=== PATIENT | female | born 1975 | race Caucasian/White ===

== ENCOUNTER 2016-05-24 16:02 | Emergency (ER) | payer OTHER ==
[~2016-05-24] VITALS: Ht 157.5 cm; Wt 56.7 kg
[2016-05-24 16:09] VITALS: TEMP 36.6; Ht 157.5 cm; Wt 56.7 kg
[2016-05-24 16:38] LABS: PREG INTERNAL NEGATIVE QC NEG CLEAR BACKGROUND; PREG INTERNAL POSITIVE QC POS CONTROL LINE
[2016-05-24 16:39] LABS: URINE APPEARANCE CLOUDY (CLEAR); URINE BILIRUBIN NEG (NEG); URINE COLOR YELLOW; URINE NITRITE POS (NEG); URINE PH 6.5 (4.5-7.5); URINE SPECIFIC GRAVITY 1.008 (1.000-1.030); UROBILINOGEN NEG (NEG); ZZUR CULT IF INDIC CLEAN CATCH YES
[2016-05-24 16:47] LABS: MANUAL MICROSCOPIC REQUIRED? NO; REVIEW REQ? YES
[2016-05-24] MEDS ORDERED: SODIUM CHLORIDE 0.9% 1000ML 1,000 ML IV STA (17:14)
[2016-05-24] MEDS ORDERED: CEFTRIAXONE SOD INJ 1 GM ADDVIAL IV STA (17:28)
[2016-05-24] MEDS ORDERED: KETOROLAC TROMETHAMINE 30 MG/ML VIAL IV STA (17:28)
--- NOTE | 2016-05-24 17:28 | EMERGENCY ROOM VISIT NOTE ---
History Report prepared by Melida: Micha Reyes Under the Supervision of: Dr. Madelin Dominguez M.D. First contact with patient: 17:13 Chief Complaint: URINARY SYMPTOMS Stated Complaint: VAG BLEEDING,FREQUENCY URINATING,CONSTANT NEED TO Nursing Triage Summary: urinary frequency, pain, burning. Possible vaginal bleeding. History of Present Illness The patient is a 40 year old female who presents to the Emergency Room with complaints of persistent vaginal bleeding that started approximately 6 days ago. She says it looks like her period, but it is not her period since she had her period 2 weeks ago. The patient says she thinks she had blood clots during her last period. She associates the vaginal bleeding with a constant urge to urinate and burning urination. She says she feels better when sitting down on the toilet seat, and she does not know why. The patient also complains of back pain on both sides. She wears a pad all the time now, and her bleeding is there all the time. She denies any chance of . The patient does note that this year her periods have not been coming on like clockwork as her periods usually do. The patient does have a twin sister with similar issues. The patient has an appointment scheduled with a [facility] PCP in a few days. She denies any fevers. Source of History: patient, family Onset: 6 days ago Position: other (global - vaginal bleeding) Timing: other (persistent) Modifying Factors (Relieving): other (sitting on toilet seat) Associated Symptoms: + back pain, + urinary symptoms (constant urge to urinate; burning urination), No fevers Note: No other associated symptoms. Review of Systems See HPI for pertinent positives & negatives. A total of 10 systems reviewed and were otherwise negative. Past Medical & Surgical Medical Problems: (1) Anemia affecting (2) Bronchitis Family History Cancer Hypertension Social History Smoking Status: Current Every Day Smoker Alcohol Use: none Marital Status: Housing Status: lives with family Occupation Status: unemployed Current/Historical Medications Scheduled Ciprofloxacin Hcl (Cipro), 500 MG PO BID Scheduled PRN Ibuprofen Tab (Advil), 200 MG PO UD PRN for Pain or Fever Allergies Coded Allergies: No Known Allergies (Unverified , 05/24/16) Physical Exam Vital Signs Date Time Temp Pulse Resp B/P Pulse Ox O2 Delivery O2 Flow Rate FiO2 05/24/16 19:41 61 18 121/71 98 05/24/16 17:53 54 18 115/69 97 Room Air 05/24/16 16:09 36.6 61 17 128/82 96 Room Air Physical Exam Vital signs reviewed. General: Well-appearing 40 year old female, in no significant distress. HEENT: No scleral icterus, PERRLA, neck supple. Atraumatic. Cardiovascular: Regular rate and rhythm, no extra sounds. Pulmonary: Clear to auscultation bilaterally, normal work of breathing. Back: Right side CVA tenderness. Atraumatic Abdomen: Soft, nontender, nondistended, positive bowel sounds. Pelvic Exam: Moderate amounts of dark red blood in vaginal vault. No cervical motion tenderness, no masses appreciated. Musculoskeletal: Atraumatic, no peripheral edema. Neurologic: Patient awake alert and oriented x 3, full strength in all 4 extremities. Cranial nerves 2 through 12 grossly intact. Skin: Warm, dry, no rash Medical Decision & Procedures Laboratory Results 05/24/16 17:44 Red Blood Count 4.08, Mean Corpuscular Volume 91.4, Mean Corpuscular Hemoglobin 30.9, Mean Corpuscular Hemoglobin Concent 33.8, Mean Platelet Volume 10.3, Neutrophils (%) (Auto) 73.3, Lymphocytes (%) (Auto) 17.5, Monocytes (%) (Auto) 7.8, Eosinophils (%) (Auto) 0.9, Basophils (%) (Auto) 0.3, Neutrophils # (Auto) 9.10, Lymphocytes # (Auto) 2.18, Monocytes # (Auto) 0.97, Eosinophils # (Auto) 0.11, Basophils # (Auto) 0.04 05/24/16 17:44 Test 05/24/16 16:20 05/24/16 17:44 Urine Color YELLOW Urine Appearance CLOUDY (CLEAR) Urine pH 6.5 (4.5-7.5) Urine Specific Remer 1.008 (1.000-1.030) Urine Protein 1+ (NEG) Urine Glucose (UA) NEG (NEG) Urine Ketones NEG (NEG) Urine Occult Blood 3+ (NEG) Urine Nitrite POS (NEG) Urine Bilirubin NEG (NEG) Urine Urobilinogen NEG (NEG) Urine Leukocyte Esterase LARGE (NEG) Urine WBC (Auto) >30 /hpf (0-5) Urine RBC (Auto) 10-30 /hpf (0-4) Urine Hyaline Casts (Auto) 0 /lpf (0-5) Urine Epithelial Cells (Auto) 10-20 /lpf (0-5) Urine Bacteria (Auto) 4+ (NEG) Urine Yeast (Auto) (NONE PRSENT) Urine Test NEG (NEG) White Blood Count 12.43 K/uL (4.8-10.8) Red Blood Count 4.08 M/uL (4.2-5.4) Hemoglobin 12.6 g/dL (12.0-16.0) Hematocrit 37.3 % (37-47) Mean Corpuscular Volume 91.4 fL (80-100) Mean Corpuscular Hemoglobin 30.9 pg (25-34) Mean Corpuscular Hemoglobin Concent 33.8 g/dl (32-36) Platelet Count 303 K/uL (130-400) Mean Platelet Volume 10.3 fL (7.4-10.4) Neutrophils (%) (Auto) 73.3 % Lymphocytes (%) (Auto) 17.5 % Monocytes (%) (Auto) 7.8 % Eosinophils (%) (Auto) 0.9 % Basophils (%) (Auto) 0.3 % Neutrophils # (Auto) 9.10 K/uL (1.4-6.5) Lymphocytes # (Auto) 2.18 K/uL (1.2-3.4) Monocytes # (Auto) 0.97 K/uL (0.11-0.59) Eosinophils # (Auto) 0.11 K/uL (0-0.5) Basophils # (Auto) 0.04 K/uL (0-0.2) RDW Standard Deviation 43.8 fL (36.4-46.3) RDW Coefficient of Variation 13.0 % (11.5-14.5) Immature Granulocyte % (Auto) 0.2 % Immature Granulocyte # (Auto) 0.03 K/uL (0.00-0.02) Anion Gap 9.0 mmol/L (3-11) Est Creatinine Clear Calc Drug Dose 70.7 ml/min Estimated GFR () 102.3 Estimated GFR (Non- 88.3 BUN/Creatinine Ratio 18.1 (10-20) Calcium Level 8.8 mg/dl (8.5-10.1) Total Bilirubin 0.3 mg/dl (0.2-1) Direct Bilirubin < 0.1 mg/dl (0-0.2) Aspartate Amino Transf (AST/SGOT) 15 U/L (15-37) Alanine Aminotransferase (ALT/SGPT) 22 U/L (12-78) Alkaline Phosphatase 57 U/L (45-117) Total Protein 7.8 gm/dl (6.4-8.2) Albumin 4.2 gm/dl (3.4-5.0) Date/Time Source Procedure Growth Status 05/24/16 16:20 Urine , Clean Catch Urine Culture - Final Escherichia Coli Complete Laboratory results per my review. Medications Administered Medications (Trade) Dose Ordered Sig/Butch Route Start Time Stop Time Status Last Admin Dose Admin Sodium Chloride (Nss 1000ml) 1,000 ml @ 200 mls/hr Q5H STAT IV 05/24/16 17:14 05/24/16 20:21 DC 05/24/16 17:14 200 MLS/HR Ceftriaxone Sodium (Rocephin Inj) 1 gm NOW STAT IV 05/24/16 17:28 05/24/16 17:30 DC 05/24/16 17:50 1 GM Ketorolac Tromethamine (Toradol Inj) 30 mg NOW STAT IV 05/24/16 17:28 05/24/16 17:30 DC 05/24/16 17:49 30 MG ED Course 1714: Past medical records reviewed. The patient was evaluated in room B10. A complete history and physical examination was performed. 1714: Ordered NSS 1000 ml @ 200 mls/hr IV. 1728: Ordered Toradol Inj 30 mg IV, Rocephin Inj 1 gm IV. 1857: I reevaluated the patient and she is resting comfortably. The patient verbally expressed agreement and understanding of the treatment plan. The patient will be discharged. Medical Decision Differential diagnoses include: cystitis, pyelonephritis, ovarian cyst, ectopic , dysfunctional urine bleeding, threatened . This pt was evaluated and appeared to be in no distress. IV access was obtained and lab work was drawn. Pt was hydrated with NSS and medicated with IV toradol and IV rocephin after UA is + for infection. Pt was feeling improved. Pelvic exam was performed and reveals dk blood, mod amount. I suspect the pt is having some dysfunctional uterine bleeding as she states periods have been irregular for 1 year. She was d/c with Rx for Cipro and asked to f/u with PCP in several days as scheduled. She was referred to OBGYN as well. She will return to the ED for worsening of symptoms or any medical concerns. Impression Primary Impression: Pyelonephritis Additional Impression: Dysfunctional uterine bleeding Scribe Attestation The scribe's documentation has been prepared under my direction and personally reviewed by me in its entirety. I confirm that the note above accurately reflects all work, treatment, procedures, and medical decision making performed by me. Departure Information Dispostion Home / Self-Care Prescriptions Ciprofloxacin Hcl (CIPRO) 500 Mg Tab 500 MG PO BID, #14 TAB Prov: Madelin Dominguez M.D. 05/24/16 Referrals No Doctor, Assigned (PCP) Forms HOME CARE DOCUMENTATION FORM, IMPORTANT VISIT INFORMATION Patient Instructions A Signature Page, My [facility] Additional Instructions Diagnosis: Pyelonephritis, dysfunctional uterine bleeding Cipro 500 mg twice daily for 7 days. Drink plenty of clear fluids. Ibuprofen 600 mg every 6 hours as needed for pain with food. Follow-up with your physician as scheduled this week for reevaluation. Call FRAME CATCHER, see below, for an appointment in follow-up. Return to the ER for worsening of symptoms or any medical concerns.
[2016-05-24] MEDS ORDERED: IBUP-103 PO (17:45)
[2016-05-24 17:59] LABS: BASO % 0.3 %; BASO ABS # 0.04 K/uL (0-0.2); COMPLETE YES; EOS % 0.9 %; HEMATOCRIT 37.3 % (37-47); IG% 0.2 %; LYMPH % 17.5 %; LYMPH ABS # 2.18 K/uL (1.2-3.4); MEAN CELL VOLUME 91.4 fL (80-100); MEAN CORPUSCULAR HEMOGLOBIN 30.9 pg (25-34); MEAN CORPUSCULAR HGB CONC 33.8 g/dl (32-36); MEAN PLATELET VOLUME 10.3 fL (7.4-10.4); MONO % 7.8 %; NEUT % 73.3 %; PLATELET COUNT 303 K/uL (130-400); RED BLOOD COUNT 4.08 M/uL (4.2-5.4); WHITE BLOOD COUNT 12.43 K/uL (4.8-10.8)
[2016-05-24 18:11] LABS: ALT/SGPT 22 U/L (12-78); AST/SGOT 15 U/L (15-37); BLOOD UREA NITROGEN 15 mg/dl (7-18); BUN/CREATININE RATIO 18.1 (10-20); CALCIUM 8.8 mg/dl (8.5-10.1); CARBON DIOXIDE 25 mmol/L (21-32); CHLORIDE 108 mmol/L (98-107); CREATININE 0.82 mg/dl (0.60-1.20); GLUCOSE 92 mg/dl (70-99); POTASSIUM 3.9 mmol/L (3.5-5.1); SODIUM 142 mmol/L (136-145)
[2016-05-24 18:14] LABS: ALKALINE PHOSPHATASE 57 U/L (45-117)
[2016-05-24] MEDS ORDERED: CIPR-255 PO (19:27)
[2016-05-24 19:41] VITALS: BP 121/71; PULSE 61; O2SAT 98
--- NOTE | 2016-05-26 13:12 | Pharmacy Progress Note ---
ED Pharmacist Culture FollowUp Date of Service: May 26, 2016. Patient was sent home with a prescription for ciprofloxacin, which should cover the E. coli growing from the patient's urine culture.
== END 2016-05-24 19:41 | disposition home or self-care (01) ==
LOC: C.EDB 16:05
DX: N12 Tubulo-interstitial nephritis, not specified as acute or chronic (principal); N93.8 Other specified abnormal uterine and vaginal bleeding; F17.200 Nicotine dependence, unspecified, uncomplicated

== ENCOUNTER → 2016-09-01 | Outpatient (CLI) | payer OTHER ==
[~2016-09-01] MED LIST: CIPR-255 PO; IBUP-103 PO
[2016-09-01 12:19] LABS: BASO % 0.8 %; BASO ABS # 0.05 K/uL (0-0.2); COMPLETE YES; EOS % 1.8 %; HEMATOCRIT 37.4 % (37-47); LYMPH % 33.2 %; LYMPH ABS # 2.08 K/uL (1.2-3.4); MEAN CORPUSCULAR HEMOGLOBIN 30.2 pg (25-34); MEAN PLATELET VOLUME 10.6 fL (7.4-10.4); MONO % 8.8 %; NEUT % 55.4 %; PLATELET COUNT 339 K/uL (130-400); WHITE BLOOD COUNT 6.27 K/uL (4.8-10.8)
== END | disposition home or self-care (01) ==
LOC: C.LAB1850 10:04
PROVIDERS: ATTEND Obstetrics & Gynecology
DX: N92.0 Excessive and frequent menstruation with regular cycle (principal)

== ENCOUNTER → 2016-09-21 | Day surgery (SDC) | payer OTHER ==
[2016-09-09 10:47] VITALS: BMI 21.0
[~2016-09-21] VITALS: Ht 162.6 cm; Wt 56.4 kg
[~2016-09-21] MED LIST changes: +ATROPINE SULFATE 0.1 MG/ML 5ML SYR IV PRN; -CIPR-255 PO; +DEXAMETHASONE SOD INJ 4 MG/ML VIAL ONE; +EpHEDrine SULFATE INJ 50 MG/ML AMP IV PRN; +FENTANYL CITRATE INJ 50 MCG/1 ML 2 ML VIAL IV PRN; +FENTANYL CITRATE INJ 50 MCG/1 ML 2 ML VIAL ONE; -IBUP-103 PO; +IBUPROFEN 600 MG TAB PO PRN; +KETOROLAC TROMETHAMINE 30 MG/ML VIAL IV. PRN; +KETOROLAC TROMETHAMINE 30 MG/ML VIAL ONE; +LACTATED RINGER'S 1000ML 1,000 ML IV SCH; +LIDOCAINE HCL 2% 2 ML VIAL (20MG/ML) ONE; +MIDAZOLAM HCL 1 MG/ML 2ML VIAL ONE; +ONDANSETRON INJ 2 MG/ML 2 ML VIAL IV PRN; +ONDANSETRON INJ 2 MG/ML 2 ML VIAL ONE; +OXYCODONE/ACETAMINOPHEN 5-325 TAB PO PRN; +PROMETHAZINE HCL INJ 25 MG in SODIUM CHLORIDE 0.9% 50ML 50 ML IV PRN; +PROPOFOL IV EMULSION 10 MG/ML 20 ML VIAL IV ONE; +SODIUM CHLORIDE 0.9% 1000ML 1,000 ML IV SCH
[2016-09-21 09:23] VITALS: Ht 162.6 cm; Wt 56.4 kg
--- NOTE | 2016-09-21 11:07 | History & Physical Bridge Note ---
H&P Re-Evaluation Bridge Note: I have examined the patient, reviewed the History & Physical and in the interval since the performance of the History & Physical I have noted the following changes of clinical significance: No changes noted
--- NOTE | 2016-09-21 11:08 | Discharge Instructions ---
Discharge Instructions Date of Service September 21, 2016. Visit Reason for Visit: Menorrhagia, Endo Polyp Discharge Discharge Diagnosis / Problem: D&C, Hysteroscopy, IUD placement Discharge Goals Goal(s): Specific goals Activity Recommendations Activity Limitations: per Instructions/Follow-up section Anesthesia . Post Anesthesia Instructions: If you have had General Anesthesia or IV Sedation: * Do not drive today. * Resume driving when surgeon permits. * Do not make important decisions or sign legal documents today. * Call surgeon for: 1. Temperature elevations greater than 101 degrees F. 2. Uncontrollable pain. 3. Excessive bleeding. 4. Persistent nausea and vomiting. 5. Medication intolerance (nausea, vomiting or rash). * For nausea and vomiting use only clear liquids such as: tea, soda, bouillon until nausea subsides, then gradually increase diet as tolerated. * If you have any concerns or questions, call your surgeon's office. If physician is unavailable and it is an emergency, call 911 or go to the nearest emergency room. . Instructions / Follow-Up Instructions / Follow-Up ACTIVITY RECOMMENDATIONS: * Avoid tampons, douching, hot tubs, pools, and intercourse until bleeding has stopped. * May shower as usual. * No strenuous activity for 24-48 hours. After 24-48 hours, you may do anything you feel like doing (driving and sports are okay). SPECIAL CARE INSTRUCTIONS: Special Diet: * Mild nausea may occur in the immediate post-operative period. * Take clear liquids such as tea, cola or bouillon until all nausea has subsided; you may then resume your normal diet. Special Care: * Light bleeding and vaginal spotting can last from a few days to 3-4 weeks. Call your doctor if bleeding becomes heavier than the heaviest part of your period. * Check your temperature twice a day for one week. If it goes above 100.4 degrees Fahrenheit (38.0 Celsius), notify your doctor. * Call your doctor's office for an appointment for 6 weeks after your surgery. FOLLOW-UP VISIT: Call your doctor's office for an appointment for 6 weeks after your surgery. Diet Recommendations Recommended Home Diet: resume previous diet Pending Studies Studies pending at discharge: no Medical Emergencies . Who to Call and When: Medical Emergencies: If at any time you feel your situation is an emergency, please call 911 immediately. . Non-Emergent Contact Non-Emergency issues call your: Primary Care Provider . . "Provider Documentation" section prepared by Ayesha Loza. .
[2016-09-21 13:05] VITALS: BP 97/67; PULSE 56; TEMP 36.9; O2SAT 100
--- NOTE | 2016-09-21 13:27 | Anesthesiology Progress Note ---
Anesthesia Post Op Note Date & Time September 21, 2016 at 13:27 Vital Signs Pain Intensity: 0 Vital Signs Past 12 Hours Date Time Temp Pulse Resp B/P Pulse Ox O2 Delivery O2 Flow Rate FiO2 09/21/16 12:55 36.9 53 16 108/60 100 Room Air 09/21/16 12:45 53 16 112/57 100 Room Air 0 09/21/16 12:35 58 16 95/65 100 Mask 10 09/21/16 12:25 36.4 52 16 106/49 100 Mask 10 Notes Mental Status: alert / awake / arousable, participated in evaluation Pt Amnestic to Procedure: Yes Nausea / Vomiting: adequately controlled Pain: adequately controlled Airway Patency, RR, SpO2: stable & adequate BP & HR: stable & adequate Hydration State: stable & adequate Anesthetic Complications: no major complications apparent
[2016-09-21 13:35] VITALS: BP 104/59; PULSE 50; O2SAT 100
--- NOTE | 2016-09-21 14:56 | OPERATIVE REPORT ---
DATE OF OPERATION: 09/21/2016 PREOPERATIVE DIAGNOSES: Menorrhagia, endometrial polyps and desires control. POSTOPERATIVE DIAGNOSIS: Same. PROCEDURES: D\T\C, hysteroscopy, polypectomy and placement of Mirena IUD. SURGEON: Dr. Ayesha Loza. ASSIST: None. ESTIMATED BLOOD LOSS: 10 mL. COMPLICATIONS: None. DISPOSITION: Stable to recovery room. DESCRIPTION: Maria Elena was placed on the table in the dorsal lithotomy position with candy-cane stirrups, prepped and draped in standard sterile fashion and a hard time-out was taken prior to proceeding. The bladder was emptied of urine via straight catheterization. Weighted and Batista speculum were introduced to the vagina and the anterior lip of the cervix was grasped with a single-tooth tenaculum. The uterus sounded to 8.5 cm. The cervix was serially dilated to allow passage of the 5 mm hysteroscope, which was then introduced into the uterine cavity. Ostia were visualized and a significant amount of polypoid tissue was seen to be essentially filling the cavity. The scope was withdrawn and polyp forceps and a sharp curette were used alternatively to remove polyps from the wall and then to curette and retrieved the tissue from the cavity. Once this was completed and polypoid tissue was no longer being retrieved in large quantities, the scope was reintroduced. Ostia were again seen and most but not all of the polypoid tissue had been removed. The scope was withdrawn and another pass with polyp forceps followed by another brief curettage was carried out. The scope was introduced one final time and the cavity was seen to have been cleanly curetted and restored to a normal shape with ostia visible bilaterally. At this time, all instruments were withdrawn except for the single tooth tenaculum, which remained in place while a Mirena IUD was inserted to the fundus and deployed in the usual manner. The lot number of the Mirena, which was utilized is [id number] and the expiration date is April 2019. Once the IUD had been placed, the strings were trimmed and all instruments were then removed from the patient who was then transferred to the PACU in stable condition. I attest to the content of the Intraoperative Record and any orders documented therein. Any exceptio ns are noted below.
== END | disposition home or self-care (01) ==
LOC: C.ACU 08:51
PROVIDERS: ATTEND Obstetrics & Gynecology
DX: N92.0 Excessive and frequent menstruation with regular cycle (principal); N84.0 Polyp of corpus uteri; F17.200 Nicotine dependence, unspecified, uncomplicated; Z80.0 Family history of malignant neoplasm of digestive organs

== ENCOUNTER → 2016-10-22 | Outpatient (CLI) | payer OTHER ==
[2016-10-22 10:35] LABS: BASO % 1.4 %; BASO ABS # 0.09 K/uL (0-0.2); COMPLETE YES; EOS % 1.6 %; HEMATOCRIT 40.9 % (37-47); IG% 0.2 %; LYMPH % 30.1 %; LYMPH ABS # 1.92 K/uL (1.2-3.4); MEAN CELL VOLUME 90.7 fL (80-100); MEAN CORPUSCULAR HEMOGLOBIN 29.9 pg (25-34); MEAN PLATELET VOLUME 10.1 fL (7.4-10.4); MONO % 8.9 %; NEUT % 57.8 %; PLATELET COUNT 332 K/uL (130-400); RED BLOOD COUNT 4.51 M/uL (4.2-5.4); WHITE BLOOD COUNT 6.37 K/uL (4.8-10.8)
[2016-10-22 11:07] LABS: CHOLESTEROL/HDL RATIO 2.6
== END | disposition home or self-care (01) ==
LOC: C.LAB1850 09:33
PROVIDERS: ATTEND Internal Medicine
DX: Z01.818 Encounter for other preprocedural examination (principal); Z13.220 Encounter for screening for lipoid disorders; Z13.1 Encounter for screening for diabetes mellitus

== ENCOUNTER → 2016-10-23 | Outpatient (CLI) | payer OTHER ==
--- NOTE | 2016-10-23 14:24 | MAMMOGRAPHY REPORT ---
BILATERAL DIGITAL SCREENING MAMMOGRAM TOMOSYNTHESIS WITH CAD: 10/23/2016 CLINICAL HISTORY: Routine screening. Patient has no complaints. TECHNIQUE: Breast tomosynthesis in addition to standard 2D mammography was performed. Current study was also evaluated with a Computer Aided Detection (CAD) system. COMPARISON: No prior exams were available for comparison. BREAST COMPOSITION: The tissue of both breasts is heterogeneously dense, which may obscure small mas ses. FINDINGS: No suspicious masses, calcifications, or areas of architectural distortion are noted in ei ther breast. IMPRESSION: ACR BI-RADS CATEGORY 1: NEGATIVE There is no mammographic evidence of malignancy. A 1 year screening mammogram is recommended. The pa tient will receive written notification of the results. Approximately 10% of breast cancers are not detected with mammography. A negative mammographic report should not delay biopsy if a clinically suggestive mass is present. Diana Key M.D. /:10/23/2016 12:40:37 [place]: Haily COMBS)(Edwina), [facility] letter sent: Normal 1/2 BI-RADS Code: ACR BI-RADS Category 1: Negative
== END | disposition home or self-care (01) ==
LOC: C.MAMM 08:46
PROVIDERS: ATTEND Internal Medicine
DX: Z12.31 Encounter for screening mammogram for malignant neoplasm of breast (principal)